=== PATIENT | female | born 1995 | race Caucasian/White ===

== ENCOUNTER 2019-01-23 15:07 | Inpatient (IN) | payer OTHER ==
[2019-01-23 18:32] VITALS: BMI 30.7
--- NOTE | 2019-01-23 20:09 | HP ---
"CIWA Score Nausea/Vomitin-Cont. Nausea/Vomiting Muscle Tremors: 6 Anxiety: 3 Agitation: 3 Paroxysmal Sweats: 3 (Increased facial moisture) Orientation: 0-Oriented Tacttile Disturbances: 0-None Auditory Disturbances: 0-None Visual Disturbances: 0-None Headache: 2-Mild CIWA-Ar Total Score: 24 - Admission Criteria OASAS Guidelines: Admission for Medically Managed Detox: Requires at least one of the followin. CIWA greater than 12 2. Seizures within the past 24 hours 3. Delirium tremens within the past 24 hours 4. Hallucinations within the past 24 hours 5. Acute intervention needed for co occurring medical disorder 6. Acute intervention needed for co occurring psychiatric disorder 7. Severe withdrawal that cannot be handled at a lower level of care (continued vomiting, continued diarrhea, abnormal vital signs) requiring intravenous medication and/or fluids 8. Patient presents the following: CIWA greater than 12 ([place] = 0) Admission Criteria Met: Admission criteria met Admission ROS [facility] - [facility] Chief Complaint: I'm in Alcohol withdrawal. Allergies/Adverse Reactions: Allergies Allergy/AdvReac Type Severity Reaction Status Date / Time Penicillins Allergy Verified 01/23/19 20:13 History of Present Illness: Here for alcohol detox. Alcohol use since age 13. Marijuana use since age 13. Nicotine use since age 16. Very few. Hx: Blackouts. Last 1 day ago (01/22/19) Denies seizures. Longest length sobriety 4 months outside of residential. PMHx: PPD (+) - States rx'd w/ INH and B6 x 6 months Denies other significant PMH. Feeling sick now r/t withdrawal. Denies hx HTN MHHx: Depression, anxiety, and insomnia. Denies thoughts of harming self or others. Stopped seeing MH provider. Was on Zoloft, Clonidine, seroquel, and buspar (Last took all meds 3 months ago) Search Terms: Kimberly Cheung, 1995 Search Date: 01/23/2019 07:59:33 PM The Drug Utilization Report below displays all of the controlled substance prescriptions, if any, that your patient has filled in the last twelve months. The information displayed on this report is compiled from pharmacy submissions to the Department, and accurately reflects the information as submitted by the pharmacies. This report was requested by: Eloisa Zuniga | Reference #: [id number] There are no results for the search terms that you entered. Exam Limitations: No Limitations - Ebola screening Have you traveled outside of the country in the last 21 days: No Have you had contact with anyone from an Ebola affected area: No Have you been sick,other than usual withdrawal symptoms: No Do you have a fever: Yes - Review of Systems Constitutional: Chills, Diaphoresis, Fever, Changes in sleep (Difficulty staying asleep) EENT: reports: Blurred Vision, Throat Pain (r/t vomiting) Respiratory: reports: No Symptoms reported Cardiac: reports: No Symptoms Reported GI: reports: Nausea, Vomiting, Indigestion (occ acid reflux) : reports: No Symptoms Reported Musculoskeletal: reports: No Symptoms Reported Integumentary: reports: No Symptoms Reported Neuro: reports: Headache (mild), Tingling (legs and arms), Tremors Endocrine: reports: Increased Thirst Hematology: reports: No Symptoms Reported Psychiatric: reports: Judgement Intact, Orientated x3, Agitated, Anxious, Depressed (Denies thoughts of harming self or others.) Patient History - PPD History Previous Implant?: Yes Documented Results: Positive w/o proof Implanted On Prior R Admission?: No PPD to be Administered?: No - Smoking Cessation Smoking history: Current some day smoker Have you smoked in the past 12 months: Yes Hx Chewing Tobacco Use: No Initiated information on smoking cessation: Yes 'Breaking Loose' booklet given: 01/23/19 - Substance & Tx. History Hx Substance Use: No Substance Use Type: Alcohol, Marijuana Hx Substance Use Treatment: Yes (rehab, residential) - Substances Abused Alcohol Route: Oral Frequency: Daily Amount used: liquor- 2 pint, beer- 1 six pack Age of first use: 13 Date of Last Use: 01/23/19 Marijuana/Hashish Route: Smoking Frequency: Daily Amount used: 1 bag Age of first use: 13 Date of Last Use: 01/21/19 Admission Physical Exam BHS - Vital Signs Vital Signs: Vital Signs - 24 hr 01/23/19 18:30 Temperature 100.1 F H Pulse Rate 103 H Respiratory 18 Rate Blood Pressure 147/104 H - Physical General Appearance: Yes: Nourished, Severe Distress, Tremorous, Sweating, Anxious HEENTM: Yes: EOMI, Hearing grossly Normal, Normocephalic, Normal Voice, TEODORA, Nasal Congestion, Other (Slight pharayngeal injection. 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 NML intact, Fully Oriented, Alert, Motor Strength 5/5, Normal Mood/Affect Integumentary: Yes: Normal Color, Warm, Diaphoresis (Increased facial moisture) Lymphatic: Yes: Within Normal Limits - Diagnostic (1) History of positive PPD Current Visit: Yes Status: Chronic Comment: States rx'd w/ INH and B6 x 6 months (2) Alcohol dependence with withdrawal Current Visit: Yes Status: Acute Qualifiers: Complication of substance-induced condition: uncomplicated Qualified Code(s ): F10.230 - Alcohol dependence with withdrawal, uncomplicated (3) Tachycardia Current Visit: Yes Status: Acute (4) Elevated temperature Current Visit: Yes Status: Acute (5) Blood pressure elevated without history of HTN Current Visit: Yes Status: Acute (6) Cannabis dependence, uncomplicated Current Visit: Yes Status: Chronic (7) Insomnia Current Visit: Yes Status: Chronic Qualifiers: Insomnia type: unspecified Qualified Code(s): G47.00 - Insomnia, unspecified Cleared for Admission [facility] - Detox or Rehab [facility] Level of Care: Medically Managed Detox Regimen/Protocol: Librium [facility] Breath Alcohol Content Breath Alcohol Content: 0 Urine Pregancy Test - Result Urine Test Results: Negative - NO Line Present Urine Drug Screen - Results Drug Screen Negative: No Urine Drug Screen Results: THC-Marijuana Inpatient Rehab Admission - Rehab Decision to Admit Inpatient rehab admission?: No"
[2019-01-23] MEDS ORDERED: IBUPROFEN 400 MG TABLET (FP) PO PRN (20:48)
[2019-01-23] MEDS ORDERED: chlordiazePOXIDE HCL 25 MG CAPSULE PO PRN (20:48)
[2019-01-23] MEDS ORDERED: chlordiazePOXIDE HCL 25 MG CAPSULE PO ONE (20:48)
[2019-01-23] MEDS ORDERED: ACETAMINOPHEN 325 MG TABLET (FP) PO PRN ×2 (20:48)
[2019-01-23] MEDS ORDERED: MAGNESIUM HYDROX 2400MG/30ML ORAL SUSPENSION 30 ML CUP PO PRN (20:48)
[2019-01-23] MEDS ORDERED: MAGNESIUM CITRATE 300 ML BOTTLE PO PRN (20:48)
[2019-01-23] MEDS ORDERED: P-EPHED 60MG/TRIPROLIDI 2.5MG TABLET PO PRN (20:48)
[2019-01-23] MEDS ORDERED: PROCHLORPERAZINE MALEATE 5 MG TABLET PO PRN (20:48)
[2019-01-23] MEDS ORDERED: BISMUTH SUBSALICYLATE 524 MG/30 ML UD PO PRN (20:48)
[2019-01-23] MEDS ORDERED: METHOCARBAMOL 500 MG TABLET PO PRN (20:48)
[2019-01-23] MEDS ORDERED: MAG HYDROX/AL HYDROX/SIMETH 30 ML UNIT-DOSE CUP PO PRN (20:48)
[2019-01-23] MEDS ORDERED: MENTHOL/PHENOL 1 EACH UD MM PRN (20:48)
[2019-01-23] MEDS: chlordiazePOXIDE HCL 25 MG CAPSULE PO SCH (22:20)
[2019-01-23] MEDS: THIAMINE HCL 100 MG TABLET (FP) PO SCH (22:21)
[2019-01-23] MEDS: MELATONIN 5 MG TABLETS PO PRN (22:21)
[2019-01-24 00:09] LABS: URINE APPEARANCE CLEAR; URINE BILIRUBIN NEGATIVE (<2.0 mg/dL); URINE COLOR YELLOW; URINE GLUCOSE (UA) NEGATIVE (NEGATIVE); URINE KETONE TRACE (NEGATIVE); URINE LEUK ESTERASE NEGATIVE (NEGATIVE); URINE NITRITE NEGATIVE (NEGATIVE); URINE PROTEIN 1+ (NEGATIVE); URINE UROBILINOGEN NEGATIVE mg/dL (0.2-1.0)
[2019-01-24 00:17] LABS: EPI CELLS RARE /HPF (FEW); URINE BACTERIA RARE /hpf (NONE SEEN); URINE MUCUS FEW
[2019-01-24] MEDS: chlordiazePOXIDE HCL 25 MG CAPSULE PO SCH ×4 (05:47→22:04)
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
[2019-01-24] MEDS: PRENATAL VITAMINS W/ FOLIC ACID TABLET (FP) PO SCH (10:15)
[2019-01-24] MEDS: SERTRALINE HCL 50 MG TABLET (FP) PO SCH (10:17)
[2019-01-24] MEDS: busPIRone HCL 10 MG TABLET (FP) PO SCH ×2 (10:17→22:04)
--- NOTE | 2019-01-24 10:45 | EKG ---
Test Reason : Blood Pressure : / mmHG Vent. Rate : 110 BPM Atrial Rate : 110 BPM P-R Int : 140 ms QRS Dur : 074 ms QT Int : 332 ms P-R-T Axes : 050 065 032 degrees QTc Int : 449 ms SINUS TACHYCARDIA OTHERWISE NORMAL ECG NO PREVIOUS ECGS AVAILABLE Confirmed by Alexander Francis MD ([id number]) on 01/24/2019 10:44:48 AM Referred By: DUYEN RODRIGUEZ Confirmed By:Alexander Francis MD
[2019-01-24 11:23] LABS: HEMOGLOBIN 13.6 GM/dL (10.7-15.3); MCH 31.8 pg (25.7-33.7); MCHC 34.1 g/dl (32.0-36.0); MEAN CELL VOLUME 93.3 fl (80-96); MEAN PLT VOLUME 8.3 fl (7.5-11.1); PLATELET COUNT 266 K/MM3 (134-434); RBC 4.29 M/mm3 (3.60-5.2); RDW 14.9 % (11.6-15.6); WHITE BLOOD COUNT 7.2 K/mm3 (4.0-10.0)
--- NOTE | 2019-01-24 11:47 | PN ---
S CIWA - CIWA Score Nausea/Vomitin-Mild Nausea/No Vomiting Muscle Tremors: 4-Moderate,w/Arms Extend Anxiety: 4-Mod. Anxious/Guarded Agitation: 4-Moderately Restless Paroxysmal Sweats: 3 Orientation: 0-Oriented Tacttile Disturbances: 0-None Auditory Disturbances: 0-None Visual Disturbances: 0-None Headache: 2-Mild CIWA-Ar Total Score: 18 BHS Progress Note (SOAP) Subjective: sweats shakes interrupted sleep crying spells headache body aches Objective: 01/24/19 11:46 Vital Signs Temperature 98.1 F 01/24/19 09:37 Pulse Rate 95 H 01/24/19 09:37 Respiratory Rate 18 01/24/19 09:37 Blood Pressure 133/86 01/24/19 09:37 O2 Sat by Pulse Oximetry (%) Laboratory Tests 01/23/19 01/24/19 22:00 07:30 WBC 7.2 RBC 4.29 Hgb 13.6 Hct 40.0 MCV 93.3 MCH 31.8 MCHC 34.1 RDW 14.9 Plt Count 266 MPV 8.3 Urine Color Yellow Urine Appearance Clear Urine pH 6.0 Ur Specific [place] 1.026 Urine Protein 1+ H Urine Glucose (UA) Negative Urine Ketones Trace H Urine Blood Negative Urine Nitrite Negative Urine Bilirubin Negative Urine Urobilinogen Negative Ur Leukocyte Esterase Negative Urine WBC (Auto) 1 Urine RBC (Auto) <1 Ur Epithelial Cells Rare Urine Bacteria Rare Urine Mucus Few rest of labs pending aaox3 ambulting no acute distress Assessment: 01/24/19 11:46 withdrawal sx pt has psych ordered for consultation Plan: continue detox increase fluids
[2019-01-24 12:18] LABS: BLOOD UREA NITROGEN 9 mg/dL (7-18); CREATININE 0.8 mg/dL (0.55-1.3); GLUCOSE,RANDOM 87 mg/dL (74-106); POTASSIUM 3.8 mmol/L (3.5-5.1); SODIUM 139 mmol/L (136-145)
[2019-01-24 12:19] LABS: ALBUMIN 3.7 g/dl (3.4-5.0); ALK PHOS 73 U/L (45-117); ANION GAP 5 MMOL/L (8-16); BILIRUBIN,TOTAL 0.7 mg/dL (0.2-1); CALCIUM 9.6 mg/dL (8.5-10.1); CHLORIDE 105 mmol/L (98-107); CO2 29 mmol/L (21-32); SGOT/AST 13 U/L (15-37); SGPT/ALT 30 U/L (13-61); TOT PROT 7.5 g/dl (6.4-8.2)
[2019-01-24] MEDS: THIAMINE HCL 100 MG TABLET (FP) PO SCH (22:04)
[2019-01-24] MEDS: QUEtiapine FUMARATE 50 MG TABLET PO SCH (22:04)
[2019-01-25] MEDS: chlordiazePOXIDE HCL 25 MG CAPSULE PO SCH ×3 (05:55→17:59)
[2019-01-25] MEDS: SERTRALINE HCL 50 MG TABLET (FP) PO SCH (10:38)
[2019-01-25] MEDS: busPIRone HCL 10 MG TABLET (FP) PO SCH ×2 (10:38→22:07)
[2019-01-25] MEDS: PRENATAL VITAMINS W/ FOLIC ACID TABLET (FP) PO SCH (10:38)
[2019-01-25] MEDS ORDERED: ONDANSETRON *ODT* 4 MG TABLET SL PRN (14:12)
--- NOTE | 2019-01-25 14:12 | PN ---
S CIWA - CIWA Score Nausea/Vomitin-Mild Nausea/No Vomiting Muscle Tremors: 3 Anxiety: 3 Agitation: 3 Paroxysmal Sweats: 3 Orientation: 0-Oriented Tacttile Disturbances: 0-None Auditory Disturbances: 0-None Visual Disturbances: 0-None Headache: 0-None Present CIWA-Ar Total Score: 13 S Progress Note (SOAP) Subjective: nausea feeling better sweats Objective: 01/25/19 14:11 Vital Signs Temperature 97.7 F 01/25/19 09:52 Pulse Rate 92 H 01/25/19 09:52 Respiratory Rate 16 01/25/19 09:52 Blood Pressure 122/74 01/25/19 09:52 O2 Sat by Pulse Oximetry (%) Laboratory Tests 01/23/19 01/24/19 01/24/19 22:00 07:30 07:30 WBC 7.2 RBC 4.29 Hgb 13.6 Hct 40.0 MCV 93.3 MCH 31.8 MCHC 34.1 RDW 14.9 Plt Count 266 MPV 8.3 Sodium 139 Potassium 3.8 Chloride 105 Carbon Dioxide 29 Anion Gap 5 L BUN 9 Creatinine 0.8 Creat Clearance w eGFR 87.40 Random Glucose 87 Calcium 9.6 Total Bilirubin 0.7 AST 13 L ALT 30 Alkaline Phosphatase 73 Total Protein 7.5 Albumin 3.7 Urine Color Yellow Urine Appearance Clear Urine pH 6.0 Ur Specific [place] 1.026 Urine Protein 1+ H Urine Glucose (UA) Negative Urine Ketones Trace H Urine Blood Negative Urine Nitrite Negative Urine Bilirubin Negative Urine Urobilinogen Negative Ur Leukocyte Esterase Negative Urine WBC (Auto) 1 Urine RBC (Auto) <1 Ur Epithelial Cells Rare Urine Bacteria Rare Urine Mucus Few RPR Titer 01/24/19 07:30 WBC RBC Hgb Hct MCV MCH MCHC RDW Plt Count MPV Sodium Potassium Chloride Carbon Dioxide Anion Gap BUN Creatinine Creat Clearance w eGFR Random Glucose Calcium Total Bilirubin AST ALT Alkaline Phosphatase Total Protein Albumin Urine Color Urine Appearance Urine pH Ur Specific [place] Urine Protein Urine Glucose (UA) Urine Ketones Urine Blood Urine Nitrite Urine Bilirubin Urine Urobilinogen Ur Leukocyte Esterase Urine WBC (Auto) Urine RBC (Auto) Ur Epithelial Cells Urine Bacteria Urine Mucus RPR Titer Nonreactive aaox3 ambulating no acute distress Assessment: 01/25/19 14:12 withdrawal sx Plan: continue detox increase fluids zofran prn
[2019-01-25] MEDS: THIAMINE HCL 100 MG TABLET (FP) PO SCH (22:07)
[2019-01-25] MEDS: chlordiazePOXIDE HCL 10 MG CAPSULE PO SCH (22:07)
[2019-01-25] MEDS: QUEtiapine FUMARATE 50 MG TABLET PO SCH (22:07)
[2019-01-25] MEDS ORDERED: chlordiazePOXIDE HCL 10 MG CAPSULE PO PRN (23:00)
[2019-01-26] MEDS: chlordiazePOXIDE HCL 10 MG CAPSULE PO SCH ×3 (06:02→17:15)
[2019-01-26] MEDS: busPIRone HCL 10 MG TABLET (FP) PO SCH ×2 (10:08→22:12)
[2019-01-26] MEDS: PRENATAL VITAMINS W/ FOLIC ACID TABLET (FP) PO SCH (10:08)
[2019-01-26] MEDS: SERTRALINE HCL 50 MG TABLET (FP) PO SCH (10:08)
--- NOTE | 2019-01-26 15:35 | PN ---
BHS Progress Note (SOAP) Subjective: Fatigue. Objective: PATIENT A & O X 2 (UNCERTAIN ABOUT CURRENT DAY / DATE). PATIENT OBSERVED AMBULATING ON UNIT. IN NO ACUTE DISTRESS. 01/26/19 15:34 Laboratory Tests 01/23/19 01/24/19 01/24/19 22:00 07:30 07:30 WBC 7.2 RBC 4.29 Hgb 13.6 Hct 40.0 MCV 93.3 MCH 31.8 MCHC 34.1 RDW 14.9 Plt Count 266 MPV 8.3 Sodium 139 Potassium 3.8 Chloride 105 Carbon Dioxide 29 Anion Gap 5 L BUN 9 Creatinine 0.8 Creat Clearance w eGFR 87.40 Random Glucose 87 Calcium 9.6 Total Bilirubin 0.7 AST 13 L ALT 30 Alkaline Phosphatase 73 Total Protein 7.5 Albumin 3.7 Urine Color Yellow Urine Appearance Clear Urine pH 6.0 Ur Specific [place] 1.026 Urine Protein 1+ H Urine Glucose (UA) Negative Urine Ketones Trace H Urine Blood Negative Urine Nitrite Negative Urine Bilirubin Negative Urine Urobilinogen Negative Ur Leukocyte Esterase Negative Urine WBC (Auto) 1 Urine RBC (Auto) <1 Ur Epithelial Cells Rare Urine Bacteria Rare Urine Mucus Few RPR Titer 01/24/19 07:30 WBC RBC Hgb Hct MCV MCH MCHC RDW Plt Count MPV Sodium Potassium Chloride Carbon Dioxide Anion Gap BUN Creatinine Creat Clearance w eGFR Random Glucose Calcium Total Bilirubin AST ALT Alkaline Phosphatase Total Protein Albumin Urine Color Urine Appearance Urine pH Ur Specific [place] Urine Protein Urine Glucose (UA) Urine Ketones Urine Blood Urine Nitrite Urine Bilirubin Urine Urobilinogen Ur Leukocyte Esterase Urine WBC (Auto) Urine RBC (Auto) Ur Epithelial Cells Urine Bacteria Urine Mucus RPR Titer Nonreactive LABS NOTED. Assessment: 01/26/19 15:34 WITHDRAWAL SYMPTOMS. Plan: CONTINUE DETOX.
[2019-01-26] MEDS: QUEtiapine FUMARATE 50 MG TABLET PO SCH (22:13)
[2019-01-26] MEDS: THIAMINE HCL 100 MG TABLET (FP) PO SCH (22:13)
[2019-01-26] MEDS: MELATONIN 5 MG TABLETS PO PRN (22:13)
[2019-01-26] MEDS ORDERED: chlordiazePOXIDE HCL 10 MG CAPSULE PO SCH (23:00)
[2019-01-27 06:30] VITALS: BP 121/81; PULSE 96; TEMP 98.1
--- NOTE | 2019-01-27 15:12 | DS ---
[facility] Detox Discharge Summary Admission Date: 01/23/19 Discharge Date: 01/27/19 - History Present History: Alcohol Dependence Pertinent Past History: pt was here for alcohol detox-protocol followed. Pt without problems - Physical Exam Results Vital Signs: Vital Signs Temperature 98.1 F 01/27/19 06:00 Pulse Rate 96 H 01/27/19 06:00 Respiratory Rate 18 01/27/19 06:00 Blood Pressure 121/81 01/27/19 06:00 O2 Sat by Pulse Oximetry (%) - Treatment Hospital Course: Detox Protocol Followed, Detoxed Safely, Responded well, Discharged Condition Good - Medication Discharge Medications: Ambulatory Orders Buspirone HCl [Buspar -] 10 mg PO BID 01/23/19 Quetiapine Fumarate [Seroquel -] 50 mg PO HS 01/23/19 Sertraline HCl [Zoloft -] 100 mg PO DAILY 01/23/19 - AMA Did Patient Leave Against Medical Advice: No
== END 2019-01-27 09:03 | disposition home or self-care (01) | DRG 775 ==
LOC: YASAS 15:07 → Y6N 21:01
PROVIDERS: ADMIT Surgery; ATTEND Surgery
PROC: HZ2ZZZZ Detoxification Services for Substance Abuse Treatment (ICD-10-PCS; principal; 2019-01-23)
DX: F10.230 Alcohol dependence with withdrawal, uncomplicated (principal); F12.20 Cannabis dependence, uncomplicated; F32.9 Major depressive disorder, single episode, unspecified; F41.8 Other specified anxiety disorders; G47.00 Insomnia, unspecified; R55 Syncope and collapse; R50.9 Fever, unspecified; R03.0 Elevated blood-pressure reading, without diagnosis of hypertension; R00.0 Tachycardia, unspecified; R76.11 Nonspecific reaction to tuberculin skin test without active tuberculosis; Z88.0 Allergy status to penicillin
CPT/HCPCS: 36415; 71046-TC-FY; 80053; 81003; 81015; 85027; 86593; 93005; 93010